=== PATIENT | male | born 1965 | race Caucasian/White ===

== ENCOUNTER 2017-09-12 05:14 | Inpatient (IN) | payer OTHER ==
[~2017-09-12] VITALS: Ht 175.3 cm; Wt 84.4 kg
[~2017-09-12 05:14] MED LIST: ALBUTEROL INH INH; ALPRAZOLAM PO; CELEXA; CIPROFLOXACIN500 M1 PO; DOXYCYCLINE 10100 M1 PO; DOXYCYCLINE 10100 MG PO; FLAGYL500 MG PO; FLEXERIL PO; HYDROCODON-ACE1 EAC7 PO; IBUPROFEN 800800 M1 PO; IV ANTIBIOTIC IVPB; LITE COAT ASPI325 MG PO; MEDROLDOSEPACK PO; NORCO 5-325 TA1 EACH PO; PERCOCET 5-3251 EACH PO; PREDNISONE50 MG PO; PROAIR HFA8.5 GM IH; TESSALON PERLE100 MG PO; ULTRACET TABLE1 EACH PO; XANAX 0.5 MG0.5 MG PO; XANAX XR1 MG; XANAX XR1 MG PO; XANAX1 MG PO; ZOFRAN ODT4 MG PO; ZYVOX600 MG PO
[2017-09-12 05:24] VITALS: BP 141/80
[2017-09-12 06:00] LABS: URINE BILIRUBIN NEGATIVE (Negative); URINE BLOOD TRACE (Negative); URINE CLARITY CLEAR; URINE COLOR YELLOW; URINE GLUCOSE-RANDOM NEGATIVE (Negative); URINE KETONES NEGATIVE (Negative); URINE LEUKOCYTES-REFLEX NEGATIVE (Negative); URINE NITRITE-REFLEX NEGATIVE (Negative); URINE PROTEIN NEGATIVE (Negative); URINE UROBILINOGEN 0.2 E.U./dl (0.2-1.0)
[2017-09-12 06:09] LABS: HEMATOCRIT 44.4 % (42.0-52.0); HEMOGLOBIN 14.9 gm/dL (14.0-18.0); MCH 31.7 pg (26.0-34.0); MCHC 33.6 g/dL (28.0-37.0); MCV 94.2 fL (80.0-100.0); MPV 7.7 fl. (7.2-11.1); NUCLEATED RBCS 0 /100WBC; PLATELET COUNT* 375 thou/uL (150-400); RBC 4.71 mil/uL (4.50-6.00); RDW-CV 13.1 % (10.5-14.5); WBC 24.6 thou/uL (4.0-11.0)
[2017-09-12 06:16] LABS: ANION GAP 6 mmol/L (7-16); BUN 17 mg/dL (7-18); CALCIUM 8.5 mg/dL (8.5-10.1); CHLORIDE 100 mmol/L (98-107); CO2 29 mmol/L (21-32); CREATININE 1.2 mg/dL (0.6-1.3); GLUCOSE 107 mg/dL (70-99); POTASSIUM 4.1 mmol/L (3.5-5.1); SODIUM 135 mmol/L (136-145)
[2017-09-12 06:24] LABS: TROPONIN-I LEVEL <0.06 ng/mL (<0.06)
[2017-09-12 06:37] LABS: AMP/METHAMP POSITIVE (Negative); BARBITURATES Negative (Negative); BENZODIAZEPINES Negative (Negative); COCAINE Negative (Negative); METHADONE Negative (Negative); OPIATES Negative (Negative); PCP Negative (Negative); THC POSITIVE (Negative)
[2017-09-12 06:43] LABS: INFLUENZA A ANTIGEN None Detected (None Detect); INFLUENZA B ANTIGEN None Detected (None Detect)
[2017-09-12 06:50] LABS: ABSOLUTE LYMPHOCYTES 2.2 thou/uL (0.8-5.3); ABSOLUTE MONOCYTES 1.5 thou/uL (0.0-1.2); ABSOLUTE NEUTROPHILS 20.9 thou/uL (1.6-8.1); ANISOCYTOSIS 1+; PLATELET ESTIMATE ADEQUATE
[2017-09-12 08:14] VITALS: BP 119/68
[2017-09-12 08:20] VITALS: BP 111/74
[2017-09-12] MEDS ORDERED: DOXYCYCLINE 10100 M1 PO (10:22)
--- NOTE | 2017-09-12 12:09 | EKG ---
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: [facility] : 1965 Requested By: Opal Layton Order Number: [id number] MD: Allen Monique Measurements Intervals [place] Rate: 125 P: 60 [place]: 130 QRS: 25 QRSD: 97 T: 63 QT: 311 QTc: 449 Interpretive Statements Sinus tachycardia Probable left atrial enlargement Inferior infarct, old Compared to ECG 02/23/2015 17:46:33 Sinus rhythm no longer present Electronically Signed On 09-12-2017 12:08:51 STORE FACILITY TECHNICIAN by Allen Monique [email or web address] <ELECTRONICALLY SIGNED> By: Allen Monique MD, [facility] 09/12/17 1208 0523 0523 Allen Monique MD, [facility] /EPI
[2017-09-12 15:41] VITALS: BP 122/77
[2017-09-12 19:50] VITALS: BP 142/88
[2017-09-13 00:02] VITALS: BP 131/78
[2017-09-13 04:49] VITALS: BP 118/70
[2017-09-13 05:01] LABS: ABSOLUTE LYMPHOCYTES 0.8 thou/uL (0.8-5.3); ABSOLUTE MONOCYTES 0.7 thou/uL (0.0-1.2); ABSOLUTE NEUTROPHILS 24.2 thou/uL (1.6-8.1); BASOPHILS 0.1 %; HEMATOCRIT 40.8 % (42.0-52.0); HEMOGLOBIN 13.5 gm/dL (14.0-18.0); MCH 31.1 pg (26.0-34.0); MCV 94.2 fL (80.0-100.0); MONOCYTES 2.7 %; MPV 8.5 fl. (7.2-11.1); NUCLEATED RBCS 0 /100WBC; PLATELET COUNT* 378 thou/uL (150-400); POLYS 94.2 %; RBC 4.33 mil/uL (4.50-6.00); RDW-CV 13.3 % (10.5-14.5); WBC 25.7 thou/uL (4.0-11.0)
[2017-09-13 05:15] LABS: CALCIUM 8.4 mg/dL (8.5-10.1); POTASSIUM 4.2 mmol/L (3.5-5.1)
[2017-09-13 07:30] VITALS: BP 129/70
--- NOTE | 2017-09-13 16:10 | EKG ---
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 Right [address]: [address] : 1965 Requested By: Dedrick aPul Order Number: [id number] Ruben MD: Nikita Alfaro Measurements Intervals [place] Rate: 107 P: 52 [place]: 145 QRS: 39 QRSD: 110 T: 2 QT: 352 QTc: 470 Interpretive Statements Sinus tachycardia Baseline wander in lead(s) V4 Compared to ECG 09/12/2017 05:23:38 Myocardial infarct finding no longer present Electronically Signed On 09-13-2017 16:10:48 BEATER TENDER by Nikita Alfaro [email or web address] <ELECTRONICALLY SIGNED> By: Nikita Alfaro MD, [facility] 09/13/17 1610 1521 152 Nikita Alfaro MD, [facility] /EPI
[2017-09-13 16:13] VITALS: BP 139/90
[2017-09-13 20:00] VITALS: BP 134/78
[2017-09-14] VITALS: BP 111/55
[2017-09-14 04:00] VITALS: BP 140/79
[2017-09-14 04:49] LABS: ABSOLUTE BASOPHILS 0.1 thou/uL (0.0-0.2); ABSOLUTE LYMPHOCYTES 1.5 thou/uL (0.8-5.3); ABSOLUTE MONOCYTES 1.1 thou/uL (0.0-1.2); BASOPHILS 0.2 %; EOSINOPHILS 0.1 %; HEMATOCRIT 38.9 % (42.0-52.0); LYMPHOCYTES 4.4 %; MCH 31.2 pg (26.0-34.0); MCHC 33.3 g/dL (28.0-37.0); MCV 93.6 fL (80.0-100.0); MONOCYTES 3.3 %; MPV 8.8 fl. (7.2-11.1); NUCLEATED RBCS 0 /100WBC; PLATELET COUNT* 420 thou/uL (150-400); RBC 4.16 mil/uL (4.50-6.00); RDW-CV 13.3 % (10.5-14.5); WBC 34.8 thou/uL (4.0-11.0)
[2017-09-14 06:34] LABS: CALCIUM 8.4 mg/dL (8.5-10.1); CREATININE 0.8 mg/dL (0.6-1.3); POTASSIUM 4.5 mmol/L (3.5-5.1)
[2017-09-14 07:30] VITALS: BP 138/82
[2017-09-14 10:06] VITALS: BP 138/82
[2017-09-14] MEDS ORDERED: CEFDINIR300 MG PO (10:08)
[2017-09-14] MEDS ORDERED: AZITHROMYCIN500 MG PO (10:23)
--- NOTE | 2017-09-14 10:25 | EKG ---
[place] [address] ELECTROCARDIOGRAM REPORT Name: DORENE BEARDEN Room: [address] ADM IN M.R.#: [id number] Admission: 09/12/17 Attend Phys: Magalys Botello MD Discharge: Date of : 65 Report #: [id number] THIS REPORT FOR: //name// [facility] Test Date: 2017-09-13 Test Time: 16:54:56 Pat Name: DORENE BEARDEN Department: Room: [address] Gender: M Ict Security Specialist: Sundeep MARES : 1965 Requested By: Dedrick Paul Order Number: [id number] Reading MD: Allen Monique Measurements Intervals [place] Rate: 102 P: 50 [place]: 137 QRS: 40 QRSD: 114 T: 13 QT: 355 QTc: 463 Interpretive Statements Sinus tachycardia Probable left atrial enlargement Borderline intraventricular conduction delay RSR' in V1 or V2, probably normal variant Compared to ECG 09/13/2017 15:21:35 RSR' in V1 or V2 now present Electronically Signed On 09-14-2017 10:24:55 VIDEO SPECIALIST by Allen Monique [email or web address] <ELECTRONICALLY SIGNED> By: Allen Monique MD, FAC 09/14/17 1024 1654 1654 Allen Monique MD, [facility] /EPI
[2017-09-14] MEDS ORDERED: XANAX1 MG PO (10:27)
[2017-09-14] MEDS ORDERED: PREDNISONE 10 M10 MG PO (10:29)
[2017-09-14] MEDS ORDERED: ACETAMINOPHEN-1 EAC1 PO (11:17)
[2017-09-14 11:19] VITALS: BP 138/82
[2017-09-14 18:01] VITALS: BP 138/82
== END 2017-09-14 15:00 | disposition home or self-care (01) | DRG 871 ==
LOC: M.ERS 05:14 → M.ORTHSURG 06:24 → M.TBA-ER 06:24 → M.ORTHSURG 08:26
PROVIDERS: Emergency Medicine; Internal Medicine; ADMIT Internal Medicine
DX: A41.9 Sepsis, unspecified organism (principal); J15.6 Pneumonia due to other Gram-negative bacteria; F41.9 Anxiety disorder, unspecified; F17.210 Nicotine dependence, cigarettes, uncomplicated; N41.1 Chronic prostatitis; F19.10 Other psychoactive substance abuse, uncomplicated; Z72.89 Other problems related to lifestyle; Z88.1 Allergy status to other antibiotic agents; Z88.2 Allergy status to sulfonamides; Z79.82 Long term (current) use of aspirin; Z79.899 Other long term (current) drug therapy; Z28.21 Immunization not carried out because of patient refusal

== ENCOUNTER 2017-09-29 23:35 | Emergency (ER) | payer OTHER ==
[~2017-09-29] VITALS: Ht 175.3 cm; Wt 81.7 kg
[~2017-09-29 23:35] MED LIST changes: +ACETAMINOPHEN-1 EAC1 PO; +AZITHROMYCIN500 MG PO; +CEFDINIR300 MG PO; +PREDNISONE 10 M10 MG PO
[2017-09-29 23:56] LABS: ABSOLUTE BASOPHILS 0.1 thou/uL (0.0-0.2); ABSOLUTE EOSINOPHILS 0.1 thou/uL (0.0-0.7); ABSOLUTE LYMPHOCYTES 2.2 thou/uL (0.8-5.3); ABSOLUTE MONOCYTES 1.5 thou/uL (0.0-1.2); ABSOLUTE NEUTROPHILS 7.7 thou/uL (1.6-8.1); BASOPHILS 0.9 %; EOSINOPHILS 0.9 %; HEMATOCRIT 44.3 % (42.0-52.0); HEMOGLOBIN 15.2 gm/dL (14.0-18.0); LYMPHOCYTES 18.8 %; MCH 32.2 pg (26.0-34.0); MCHC 34.3 g/dL (28.0-37.0); MCV 94.1 fL (80.0-100.0); MPV 7.5 fl. (7.2-11.1); NUCLEATED RBCS 0 /100WBC; PLATELET COUNT* 441 thou/uL (150-400); POLYS 66.4 %; RBC 4.71 mil/uL (4.50-6.00); RDW-CV 13.8 % (10.5-14.5); WBC 11.5 thou/uL (4.0-11.0)
[2017-09-30 00:08] LABS: CALCIUM 8.6 mg/dL (8.5-10.1); CREATININE 1.3 mg/dL (0.6-1.3); POTASSIUM 3.6 mmol/L (3.5-5.1)
[2017-09-30 01:37] VITALS: BP 139/65
== END 2017-09-30 01:40 | disposition home or self-care (01) ==
LOC: M.ERS 23:35
PROVIDERS: Emergency Medicine
DX: F15.10 Other stimulant abuse, uncomplicated (principal); F41.9 Anxiety disorder, unspecified; F12.10 Cannabis abuse, uncomplicated; Z88.1 Allergy status to other antibiotic agents; Z88.2 Allergy status to sulfonamides

== ENCOUNTER 2017-11-25 01:16 | Emergency (ER) | payer OTHER ==
[~2017-11-25] VITALS: Ht 175.3 cm; Wt 83.9 kg
[2017-11-25] MEDS ORDERED: NOHOMEMEDICATIONS (01:36)
[2017-11-25 02:20] LABS: URINE BILIRUBIN NEGATIVE (Negative); URINE BLOOD NEGATIVE (Negative); URINE CLARITY CLEAR; URINE COLOR YELLOW; URINE GLUCOSE-RANDOM NEGATIVE (Negative); URINE KETONES NEGATIVE (Negative); URINE LEUKOCYTES-REFLEX NEGATIVE (Negative); URINE NITRITE-REFLEX NEGATIVE (Negative); URINE PROTEIN NEGATIVE (Negative); URINE SPECIFIC GRAVITY >= 1.030 (1.005-1.030); URINE UROBILINOGEN 0.2 E.U./dl (0.2-1.0)
[2017-11-25] MEDS ORDERED: IBUPROFEN 800800 M1 PO (02:37)
[2017-11-25] MEDS ORDERED: FLEXERIL PO (02:37)
[2017-11-25] MEDS ORDERED: DOXYCYCLINE 10100 MG PO (02:37)
[2017-11-25 02:45] VITALS: BP 142/99
== END 2017-11-25 02:45 | disposition home or self-care (01) ==
LOC: M.ERS 01:16
PROVIDERS: Emergency Medicine Emergency Medical Services
DX: M54.5 Low back pain (principal); F41.9 Anxiety disorder, unspecified; Z88.8 Allergy status to other drugs, medicaments and biological substances; Z88.1 Allergy status to other antibiotic agents

== ENCOUNTER 2018-05-15 12:24 | Emergency (ER) | payer OTHER ==
[~2018-05-15] VITALS: Ht 175.3 cm; Wt 83.9 kg
[~2018-05-15 12:24] MED LIST changes: +NOHOMEMEDICATIONS
[2018-05-15 13:11] LABS: URINE BILIRUBIN NEGATIVE (Negative); URINE BLOOD NEGATIVE (Negative); URINE CLARITY CLEAR; URINE COLOR YELLOW; URINE GLUCOSE-RANDOM NEGATIVE (Negative); URINE KETONES NEGATIVE (Negative); URINE LEUKOCYTES-REFLEX NEGATIVE (Negative); URINE NITRITE-REFLEX NEGATIVE (Negative); URINE PROTEIN NEGATIVE (Negative); URINE UROBILINOGEN 0.2 E.U./dl (0.2-1.0)
[2018-05-15 13:19] LABS: ABSOLUTE BASOPHILS 0.1 thou/uL (0.0-0.2); ABSOLUTE EOSINOPHILS 0.2 thou/uL (0.0-0.7); ABSOLUTE LYMPHOCYTES 2.8 thou/uL (0.8-5.3); ABSOLUTE MONOCYTES 0.7 thou/uL (0.0-1.2); ABSOLUTE NEUTROPHILS 4.3 thou/uL (1.6-8.1); BASOPHILS 0.9 %; EOSINOPHILS 2.6 %; HEMATOCRIT 47.5 % (42.0-52.0); HEMOGLOBIN 16.1 gm/dL (14.0-18.0); LYMPHOCYTES 34.9 %; MCH 31.9 pg (26.0-34.0); MCHC 33.8 g/dL (28.0-37.0); MCV 94.4 fL (80.0-100.0); MONOCYTES 8.9 %; MPV 7.8 fl. (7.2-11.1); NUCLEATED RBCS 0 /100WBC; PLATELET COUNT* 378 thou/uL (150-400); POLYS 52.7 %; RBC 5.04 mil/uL (4.50-6.00); RDW-CV 13.9 % (10.5-14.5); WBC 8.1 thou/uL (4.0-11.0)
[2018-05-15 13:27] LABS: CALCIUM 8.8 mg/dL (8.5-10.1); POTASSIUM 4.2 mmol/L (3.5-5.1)
[2018-05-15 13:31] LABS: ALBUMIN 3.8 g/dL (3.4-5.0); TOTAL BILIRUBIN 0.4 mg/dL (<0.1-1.0); TOTAL PROTEIN 7.5 g/dL (6.4-8.2)
[2018-05-15] MEDS ORDERED: DOXYCYCLINE 10100 MG PO (13:55)
[2018-05-15 14:04] VITALS: BP 135/99
== END 2018-05-15 14:04 | disposition home or self-care (01) ==
LOC: M.ERS 12:24
PROVIDERS: Nurse Practitioner Family
DX: J32.9 Chronic sinusitis, unspecified (principal); F41.9 Anxiety disorder, unspecified; Z88.1 Allergy status to other antibiotic agents; Z88.2 Allergy status to sulfonamides; Z88.8 Allergy status to other drugs, medicaments and biological substances

== ENCOUNTER 2021-05-03 15:13 | Emergency (ER) | payer OTHER ==
[~2021-05-03] VITALS: Ht 175.3 cm; Wt 86.2 kg
[2021-05-03 15:46] LABS: ABSOLUTE EOSINOPHILS 0.4 thou/uL (0.0-0.7); ABSOLUTE LYMPHOCYTES 2.9 thou/uL (0.8-5.3); ABSOLUTE MONOCYTES 0.6 thou/uL (0.0-1.2); ABSOLUTE NEUTROPHILS 3.6 thou/uL (1.6-8.1); BASOPHILS 0.3 %; EOSINOPHILS 5.6 %; HEMATOCRIT 44.2 % (42.0-52.0); HEMOGLOBIN 15.3 gm/dL (14.0-18.0); LYMPHOCYTES 38.3 %; MCH 31.6 pg (26.0-34.0); MCHC 34.5 g/dL (28.0-37.0); MCV 91.6 fL (80.0-100.0); MONOCYTES 8.1 %; MPV 8.1 fl. (7.2-11.1); NUCLEATED RBCS 0 /100WBC; PLATELET COUNT* 391 thou/uL (150-400); POLYS 47.7 %; RBC 4.83 mil/uL (4.50-6.00); RDW-CV 13.8 % (10.5-14.5); WBC 7.5 thou/uL (4.0-11.0)
[2021-05-03 15:53] LABS: CALCIUM 8.4 mg/dL (8.5-10.1); POTASSIUM 3.8 mmol/L (3.5-5.1)
[2021-05-03 15:57] LABS: ALBUMIN 3.3 g/dL (3.4-5.0); MAGNESIUM 2.2 mg/dL (1.8-2.4); TOTAL BILIRUBIN 0.2 mg/dL (<0.1-1.0); TOTAL PROTEIN 6.7 g/dL (6.4-8.2)
--- NOTE | 2021-05-03 16:03 | EKG ---
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: : 1965 Requested By: Nickolas Francis Order Number: [id number] MD: Allen Monique Measurements Intervals [place] Rate: 64 P: 32 AL: 143 QRS: 10 QRSD: 105 T: 35 QT: 435 QTc: 449 Interpretive Statements Sinus rhythm Baseline wander in lead(s) V1 Compared to ECG 09/13/2017 16:54:56 Sinus tachycardia no longer present Electronically Signed On 05-03-2021 16:03:03 CDT by Allen Monique [email or web address] <ELECTRONICALLY SIGNED> By: Allen Monique MD, [facility] 05/03/21 1603 1519 1519 Allen Monique MD, [facility] /EPI
[2021-05-03 18:18] VITALS: BP 141/76
--- NOTE | 2021-05-04 14:21 | EKG ---
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: ESCOBAR : 1965 Requested By: Nickolas Francis Order Number: [id number] MD: Allen Monique Measurements Intervals [place] Rate: 60 P: 28 [place]: 145 QRS: 4 QRSD: 115 T: 32 QT: 433 QTc: 433 Interpretive Statements Sinus rhythm Nonspecific intraventricular conduction delay Baseline wander in lead(s) V1 Compared to ECG 05/03/2021 15:19:07 no change Electronically Signed On 05-04-2021 14:21:09 CDT by Allen Monique [email or web address] <ELECTRONICALLY SIGNED> By: Allen Monique MD, FACC 05/04/21 1421 1730 1730 Allen Monique MD, [facility] /EPI
== END 2021-05-03 18:19 | disposition home or self-care (01) ==
LOC: M.ERS 15:13
PROVIDERS: Emergency Medicine Emergency Medical Services
DX: R07.89 Other chest pain (principal); F41.9 Anxiety disorder, unspecified; Z88.1 Allergy status to other antibiotic agents; Z88.2 Allergy status to sulfonamides